=== PATIENT | female | born 1985 | race Two or more races ===

== ENCOUNTER → 2017-01-09 | Emergency (ER) | payer OTHER ==
[~2017-01-09] MED LIST: HYDROMORPHONE HCL 1 MG/ML SYRINGE ONE; MAGNESIUM SULFATE 1 G/100 ML 100 ML IV ONE; ONDANSETRON 4 MG/2ML 2 ML VIAL ONE; SODIUM CHLORIDE 0.9% 1,000 ML ONE
[2017-01-09 18:25] LABS: ABSOLUTE NEUTROPHIL COUNT 5.5 K/mm3 (1.8-7.7); BASO % 0.3 % (0.2-1.0); EOS % 0.1 % (0.9-2.9); HEMATOCRIT 38.2 % (37.0-47.0); HEMOGLOBIN 13.1 gm/l (12.0-16.0); IMM NEUT% 0.3 % (0-1); LYMPH # 0.8 (1.0-4.8); LYMPH % 12.1 % (15-45); MEAN CELL VOLUME 89.5 fl (81.0-99.0); MEAN CORPUSCULAR HEMOGLOBIN 30.7 pg (27.0-31.0); MEAN CORPUSCULAR HGB CONC 34.3 g/dl (33.0-37.0); MEAN PLATELET VOLUME 11.3 fl (7.4-10.4); MONO # 0.4 (0.0-0.8); MONO % 6.2 % (4-12); PLATELET COUNT 197 K/mm3 (130-400); RED CELL DISTRIBUTION WIDTH 12.9 % (11.5-14.5)
[2017-01-09 18:29] LABS: ALB/GLOB RATIO 1.3 (>1.0); ALBUMIN 4.1 gm/dL (3.5-5.7); CALCIUM 9.2 mg/dL (8.6-10.3)
[2017-01-09 18:33] LABS: HCG,QUALITATIVE URINE NEGATIVE
[2017-01-09 18:41] LABS: URINE BILIRUBIN NEGATIVE (NEGATIVE); URINE BLOOD NEGATIVE (NEGATIVE); URINE GLUCOSE (UA) NEGATIVE (NEGATIVE); URINE LEUKOCYTE ESTERASE NEGATIVE (NEGATIVE); URINE NITRITE NEGATIVE (NEGATIVE); URINE PROTEIN NEGATIVE (NEGATIVE); URINE UROBILINOGEN NORMAL (0-1 mg/dl)
[2017-01-09] MEDS: IOPAMIDOL 370 (76%) 100 ML VIAL IV ONE (18:42)
[2017-01-09 18:43] LABS: INR 0.99; PROTHROMBIN TIME 10.4 SECONDS (9.3-11.4)
[2017-01-09 18:52] LABS: URINE APPEARANCE CLEAR; URINE COLOR YELLOW
--- NOTE | 2017-01-09 19:41 | CT ---
ADDENDUM #1 In the impressions, the first section should read as follows: Teratoma/dermoid involving the left adnexal region. Mobility Architect Manager' s worksheet from ultrasound indicates patient had prior for oophorectomy for teratoma but is unsure of which side. Given nonvisualization of the right ovary, it is probably surgically absent. PUBLIC RELATIONS WRITER consult would be helpful in further management and treatment. The remainder the exam stands as is. ORIGINAL REPORT Exam Type: ABD/PELVIS W/ CON Date and Time: 01/09/2017 6:24 PM Clinical information: Abnormal lesion identified on recent ultrasound. Comparison: Other ultrasound 01/09/2017 Technique: Contiguous axial 4 mm images were obtained from the lung bases through the pelvis after the uneventful IV administration of 100 cc of Isovue-370. Sagittal and coronal reformations with high resolution lung algorithm images were also obtained at this time. CT DI: 33.1 DLP 1775.6 FINDINGS: Lung base :No abnormality is identified at the lung bases. Visualized heart:There is no pericardial effusion. LIVER: within normal limits. BILE DUCTS: normal caliber. GALLBLADDER: No calcified gallstones. Normal caliber wall. PANCREAS: within normal limits. SPLEEN: within normal limits. ADRENALS: within normal limits. KIDNEYS: within normal limits. Stomach and small BOWEL: Normal caliber. Large bowel: Air and stool are noted within the large bowel. LYMPH NODES: No enlarged mesenteric lymph nodes. PERITONEUM: no ascites or free air, no fluid collection. VESSELS: within normal limits RETROPERITONEUM: within normal limits. ABDOMINAL WALL: within normal limits. Bladder: Normal. Uterus and adnexa: There is a left adnexal teratoma/dermoid. This does correspond to the area of abnormality as seen on recent ultrasound. This measures approximately 6.7 x 7.7 x 9.3 cm in maximal AP, transverse and craniocaudal extent. Right ovary is not visualized. BONES: within normal limits. IMPRESSION: Teratoma/dermoid involving the left adnexal region. Mobility Architect Manager' s worksheet from the ultrasound indicates patient had prior left oophorectomy for teratoma. Findings may relate to recurrence. Correlation with patient's surgical history is recommended to verify the side of oophorectomy. Findings were called to Dr. Carvajal at approximately 1934 hours on 01/09/2017.
== END ==
LOC: ED 17:22
DX: D39.8 Neoplasm of uncertain behavior of other specified female genital organs (principal); R10.32 Left lower quadrant pain; R10.2 Pelvic and perineal pain; N83.9 Noninflammatory disorder of ovary, fallopian tube and broad ligament, unspecified; Z90.721 Acquired absence of ovaries, unilateral
CPT/HCPCS: 81025; 85025; 80053; 83735; 85610; 81003; 74177; 76856; 76830; 96375 ×2; 99284 ×2; 96361; 96365; J1170; J3475; J2405; J7030; Q9967

== ENCOUNTER 2017-01-24 08:17 | Day surgery (SDC) | payer OTHER ==
[~2017-01-24 08:17] MED LIST changes: +CEFAZOLIN SODIUM 2 GRAM DUPLEX 2 G in Premix (D5W) 50 ml 1 EACH IV PRN; -HYDROMORPHONE HCL 1 MG/ML SYRINGE ONE; +LIDOCAINE 1% 2 ML VIAL ID PRN; -MAGNESIUM SULFATE 1 G/100 ML 100 ML IV ONE; -ONDANSETRON 4 MG/2ML 2 ML VIAL ONE; -SODIUM CHLORIDE 0.9% 1,000 ML ONE
[2017-01-24] MEDS ORDERED: LACTATED RINGERS 1,000 ML ONE (08:23)
[2017-01-24] MEDS ORDERED: IV START KIT ONE (08:24)
[2017-01-24] MEDS ORDERED: SUCCINYLCHOLINE CHL 20 MG/ML DOSE ONE (10:40)
[2017-01-24] MEDS ORDERED: PROPOFOL 20 ML IV ONE ×2 (10:40→11:26)
[2017-01-24] MEDS ORDERED: LIDOCAINE 2% (MULTI DOSE) 10 ML VIAL ONE (10:40)
[2017-01-24] MEDS ORDERED: MIDAZOLAM HCL 1 MG/ML 2ML VIAL ONE (10:41)
[2017-01-24] MEDS ORDERED: FENTANYL 100 MCG/2 ML VIAL ONE ×3 (10:41→12:34)
[2017-01-24] MEDS ORDERED: ONDANSETRON 4 MG/2ML 2 ML VIAL ONE (10:43)
[2017-01-24] MEDS ORDERED: DEXAMETHASONE SOD PHOS 4 MG/1 ML VIAL ONE (10:43)
[2017-01-24] MEDS ORDERED: KETAMINE HCL UD SYRINGE 100 MG/2 ML IV ONE (11:17)
[2017-01-24] MEDS ORDERED: ROCURONIUM BROMIDE 10 MG/ML DOSE IV ONE (11:17)
[2017-01-24] MEDS ORDERED: HYDROMORPHONE HCL 2 MG/ML SYRINGE ONE (11:37)
[2017-01-24] MEDS ORDERED: NEOSTIGMINE METHYLSULFATE 1 MG/ML DOSE ONE (11:38)
[2017-01-24] MEDS ORDERED: GLYCOPYRROLATE 0.2 MG/ML 1ML VIAL ONE (11:38)
[2017-01-24] MEDS ORDERED: NALOXONE HCL 0.4 MG/ML VIAL IV PRN (11:41)
[2017-01-24] MEDS ORDERED: HYDRALAZINE HCL 20 MG/1 ML VIAL IV PRN (11:41)
[2017-01-24] MEDS ORDERED: MEPERIDINE 25 MG/ML SYRINGE IV PRN (11:41)
[2017-01-24] MEDS ORDERED: LABETALOL HCL 5 MG/ML 20ML VIAL IV PRN (11:41)
[2017-01-24] MEDS ORDERED: PROMETHAZINE HCL 25 MG/ML VIAL IM PRN (11:41)
[2017-01-24] MEDS ORDERED: ONDANSETRON 4 MG/2ML 2 ML VIAL IV PRN ×2 (11:41→12:22)
[2017-01-24] MEDS ORDERED: ATROPINE SULFATE 0.4 MG/1 ML VIAL IV PRN (11:41)
[2017-01-24] MEDS ORDERED: LACTATED RINGERS 1,000 ML IV SCH (11:45)
[2017-01-24] MEDS ORDERED: DIPHENHYDRAMINE HCL 50 MG/1 ML VIAL IV PRN (12:22)
[2017-01-24] MEDS ORDERED: BLISTEX LIPSTICK 1 EACH TP PRN (12:22)
[2017-01-24] MEDS ORDERED: MAG HYDROX/AL HYDROX/SIMETH 30 ML UDCUP PO PRN (12:22)
[2017-01-24] MEDS ORDERED: MAGNESIUM HYDROXIDE/AL HYDROX 30 ML UDCUP PO PRN (12:22)
[2017-01-24] MEDS ORDERED: ACETAMINOPHEN 325 MG TABLET PO PRN (12:22)
[2017-01-24] MEDS ORDERED: MENTHOL/CETYLPYRD 1 EACH LOZENGE PO PRN (12:22)
[2017-01-24] MEDS ORDERED: DOCUSATE SODIUM 100 MG CAPSULE PO PRN (12:22)
[2017-01-24] MEDS ORDERED: OXYCODONE/ACETAMINOPHEN 5/325 MG TABLET PO PRN (12:22)
[2017-01-24] MEDS ORDERED: IBUPROFEN 800 MG TABLET PO SCH (12:30)
[2017-01-24] MEDS: FENTANYL 100 MCG/2 ML VIAL IV PRN ×2 (12:35→12:41)
--- NOTE | 2017-01-24 12:37 | PCMBPN ---
Brief Post Op Note: Date of Procedure: 01/24/17 Start Time: Preoperative Diagnosis: 1. left ovarian teratoma Postoperative Diagnosis: 1. Same Procedure: exploratory laparotomy, left ovarian cystectomy Surgeon: Cricket Arellano Assist:dr jaimes Anesthesia: mr chavez, general Findings: normal size uterus, right fallopian tube normal, left fallopian tube normal, 7 cm left ovarian bilobar cyst Condition: stable Complications: none IV Fluids: mLs of LR Urine Output: 400 mLs Estimated Blood Loss: 100 mLs Tourniquet Time: N/A Specimens: left ovarian cyst Implants: Drains: closure sarah patient tolerated procedure well and was returned to recovery room in stable condition with guidry draining clear yellow urine
[2017-01-24] MEDS ORDERED: KETOROLAC TROMETHAMINE 30 MG/ML 1 ML VIAL ONE (12:40)
[2017-01-24] MEDS ORDERED: KETOROLAC TROMETHAMINE 30 MG/ML 1 ML VIAL IV ONE (12:44)
[2017-01-24] MEDS ORDERED: MEPERIDINE 25 MG/ML SYRINGE ONE (12:51)
[2017-01-24] MEDS ORDERED: HYDROMORPHONE HCL 1 MG/ML SYRINGE ONE (13:00)
[2017-01-24] MEDS: HYDROMORPHONE HCL 1 MG/ML SYRINGE IV PRN ×2 (13:06→13:11)
[2017-01-24] MEDS: LACTATED RINGERS 1,000 ML IV SCH ×8 (14:37→22:43)
[2017-01-24] MEDS ORDERED: PUMP TUBING ONE (14:42)
[2017-01-24] MEDS: MORPHINE SULFATE 2 MG/ML SYRINGE IV PRN ×2 (15:57→22:50)
[2017-01-24 16:45] VITALS: BMI 42.5
--- NOTE | 2017-01-24 17:11 | OP ---
HILARIO ESQUIVEL [id number] DATE OF : 1985 NAME OF OPERATION: EXPLORATORY LAPAROTOMY WITH A LEFT OVARIAN CYSTECTOMY. PREOPERATIVE DIAGNOSIS: Left ovarian teratoma. POSTOPERATIVE DIAGNOSIS: Left ovarian teratoma. PLASTIC CUTTER: Dr. Cricket Arellano LAND AGENT: Dr. Dennis Hi ANESTHESIA: Zach Wu CRNA, general anesthesia. DESCRIPTION OF PROCEDURE: With the patient in a supine position under general anesthesia, a Coleman was placed and it was draining clear yellow urine at the onset of the procedure. The abdomen was prepared with ChloraPrep and draped in the usual manner for a Pfannenstiel incision. After a time-out was performed, a knife was used to make a Pfannenstiel incision through the previous incision. The subcutaneous tissue was dissected down with the same knife to the rectus abdominis fascia which was nicked with the knife and then carried laterally with the Briseno scissors. All bleeding points were clamped with Kelleys and Bovied. The superior portion of the fascia was grasped with Kang clamps and the median raphe divided with the Briseno scissors, then a similar procedure was performed on the lower end of the incision. The muscle was split in midportion and the peritoneum was then entered by blunt dissection using a finger, and the peritoneum was stretched laterally. Findings included a normal sized anteverted uterus. The right Fallopian tube was normal. The right ovary was surgically absent. The left ovary contained a 7 cm bi-lobar ovarian cyst and the left Fallopian tube appeared normal. The ovarian cyst was delivered through the incision and then a circumferential incision was made around the ovarian cyst, and then the cyst wall was dissected back using blunt dissection and also Metzenbaum scissors. The cyst was removed and then the remainder of the cyst wall and a portion of the ovary were sutured with 2-0 Chromic continuous interlocking sutures, resulting in complete hemostasis. At the end of the procedure, suturing the cyst wall to the ovarian tissue base resulted in approximately 2-3 cm of ovarian tissue remaining. At this point, with complete hemostasis and instrument, sponge and instrument count reported as correct, the rectus muscle was reapproximated with 1-Chromic interrupted sutures times three and the rectus abdominis fascia was reapproximated in right and left halves using a running stitch of 1-Vicryl material, locking the first stitch only. Subcutaneous bleeding points were Bovied prior to closure. The skin was closed with sarah. Estimated blood loss of the procedure was 100 mL. The patient tolerated the procedure well and was returned to the recovery room in stable condition, with a Coleman draining clear yellow urine. FINAL DIAGNOSIS: As above.
[2017-01-24] MEDS: IBUPROFEN 800 MG TABLET PO SCH (20:48)
[2017-01-24] MEDS: KETOROLAC TROMETHAMINE 30 MG/ML 1 ML VIAL IV PRN (21:34)
[2017-01-25] MEDS: IBUPROFEN 800 MG TABLET PO SCH ×4 (01:29→18:49)
[2017-01-25] MEDS: LACTATED RINGERS 1,000 ML IV SCH ×3 (06:18→22:33)
[2017-01-25] MEDS: KETOROLAC TROMETHAMINE 30 MG/ML 1 ML VIAL IV PRN ×2 (06:18→12:32)
--- NOTE | 2017-01-25 10:54 | PDOC43 ---
- Subjective patient feels tired today. would like to delay discharge until tomorrow. Subjective: Reports Flatus, Reports Pain Tolerable, Reports Tolerating PO Clear , Reports Tolerating PO Regular, Denies Chest Pain, Denies Nausea, Denies Vomiting, Denies Fever, Denies Bowel Movement - Objective Vital Signs Temperature 98.8 F 01/25/17 07:44 Pulse Rate 71 01/25/17 07:44 Respiratory Rate 16 01/25/17 07:44 Blood Pressure 88/50 01/25/17 07:44 O2 Saturation by Pulse Oximetry 96 01/25/17 07:44 Oxygen Delivery Method Room Air Oxygen Flow Rate 0 Laboratory 01/25/17 06:54 Active Medication Orders Category Date Time Status Acetaminophen [Tylenol] Med 01/24/17 12:22 Active 325 - 650 mg PO Q4H PRN Diphenhydramine HCl [Benadryl] Med 01/24/17 12:22 Active 25 mg IV Q6H PRN Docusate Sodium [Colace] Med 01/24/17 12:22 Active 100 mg PO BID PRN Ibuprofen [Motrin] Med 01/24/17 18:45 Active 800 mg PO Q6H Ketorolac Tromethamine [Toradol] Med 01/24/17 20:55 Active 30 mg IV Q6H PRN LR 1,000 ml Med 01/24/17 12:30 Active Lactated Ringers 1,000 ml IV 125 mls/hr Lip [place] [Blistex] Med 01/24/17 12:22 Active 1 each TP PRN PRN Magnesium Hydroxide/Al Hydrox [Maalox] Med 01/24/17 12:22 Active 30 ml PO Q4H PRN Magnesium/Al Hydrox/Simeth [Maalox Plus] Med 01/24/17 12:22 Active 30 ml PO Q4H PRN Menthol/Cetylpyridinium [Cepacol] Med 01/24/17 12:22 Active 1 each PO PRN PRN Morphine Sulfate Med 01/24/17 14:40 Active 2 mg IV Q2H PRN Ondansetron 4 mg/2ml Vial [Zofran] Med 01/24/17 12:22 Active 4 mg IV Q4H PRN Oxycodone HCl [Roxicodone] Med 01/24/17 12:22 Active 5 - 10 mg PO Q3H PRN Oxycodone HCl/Acetaminophen [Percocet 5/325] Med 01/24/17 12:22 Active 1 - 2 tab PO Q4H PRN Sodium Chloride 0.9% Flush [Normal Saline 10ml Flush] Med 01/24/17 12:22 Active 10 - 50 ml IV PRN PRN Intake and Output 01/23/17 01/24/17 01/25/17 23:59 23:59 23:59 Intake Total 1700 400 Output Total 625 2250 Balance 1075 -1850 General: Afebrile, No Acute Distress Lungs: Clear to Auscultation Bilaterally, Normal Air Movement Abdomen: Soft, Non-Distended, Normal Bowel Sounds, Other (flatus passed, no bowel movemet), No Tenderness Wound PIT 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
[2017-01-25] MEDS: OXYCODONE HCL 5 MG TABLET PO PRN ×2 (19:37→22:42)
[2017-01-26] MEDS: IBUPROFEN 800 MG TABLET PO SCH ×2 (01:16→06:12)
--- NOTE | 2017-01-26 06:11 | PDOC5 ---
Hospital Course: ADMIT DATE: DISCHARGE DATE: 01/26/17 ADMISSION DIAGNOSES: left ovarian cyst (teratoma) PROCEDURES: exploratory laparotomy, left ovarian cystectomy HISTORY OF PRESENT ILLNESS: 31 year old presenting with left ovarian cyst with characteristics of teratoma on ultrasound HOSPITAL COURSE: The patient had an uneventful post operative course. on post operative day one she felt tired from analgesics and requested staying in hospital another day. By day of discharge the patient is ambulating, eating, voiding, and passing flatus without difficulty. Pain is controlled. 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: Dressing in Place, Dressing Clean/Dry/Intact, Well Approximated, [place] Intact, No Drainage, No Erythema, No Rash Genitourinary: Other (voiding without difficulty) Extremities: No Tenderness Psych/Mental Status: Normal Affect, Normal Mood - Discharge Diagnosis (1) Dermoid cyst of left ovary Status: Acute (2) Obesity Qualifiers: Obesity type: unspecified obesity type Status: Acute - Discharge Plan Condition: Good Additional Instructions: no heavy lifting, may drive a car in one week, take prescribed medications as written, office visit with dr arroyo 10 days for staple removal Prescriptions: Ibuprofen [Motrin] 800 mg PO Q8H PRN #30 tablet PRN Reason: Pain Codeine/APAP 30/300 mg [TYLENOL with CODEINE] 1 tab PO Q4-6H PRN #15 tablet PRN Reason: Pain
[2017-01-26] MEDS: OXYCODONE HCL 5 MG TABLET PO PRN (06:13)
[2017-01-26 07:40] VITALS: BP 101/61
--- NOTE | 2017-01-28 15:55 | SURGPATH ---
[facility] [address] [place] [id number] Patient Name: HILARIO ESQUIVEL MR#: [id number] : 1985 Gender: F Specimen #: [id number] Collected: 01/24/2017 Received: 01/27/2017 Reported: 01/28/2017 Submitting Phys: EKNDRA VERGARA I Copy To Phys: [facility] RICARDO ALTAMIRANO Clinical History / Pre-Operative Diagnosis: LEFT OVARIAN TERATOMA; PELVIC PAIN Specimen Source / Surgical Procedure Performed: LEFT OVARIAN TERATOMA Interpretation: OVARY, LEFT, CYSTECTOMY: - MATURE CYSTIC TERATOMA Electronically Signed Out Odessa Dunn M.D. Gross Description: The specimen is received in a formalin filled container labeled with the patient's name and "left ovarian teratoma". Three separate, smooth surfaced, miller-pena ovarian cystectomy specimens are 2.7 x 2.5 x 2 cm and 8 g; 5.0 x 4.0 x 3.5 cm and 40 g; 6.5 x 5.5 x 5 cm and 100 g. The smaller cyst has a predominantly thin-wall with a 0.7 cm nidus. The lumen is filled with greasy yellow-pena sebaceous material. The middle sized cyst has a predominantly thin-wall with a 1 cm nidus. The lumen is filled with greasy, yellow-pena sebaceous material and hair. The largest cyst has a predominantly thin-wall with a 1.2 cm nidus. The lumen is filled with soft pena sebaceous material and a small amount of hair. Summary of sections: A-smallest cyst wall B and C-middle sized cyst wall D-F-largest cyst wall Josh Malone Microscopic Description: Sections show three cysts with features of mature cystic teratoma. They are lined by benign squamous epithelium as well as columnar epithelium. Foreign body reaction is seen. No evidence of immature neuroectodermal tissue or embryonal tissue is seen. No thyroidal tissue is seen. Bone, cartilage, salivary gland tissue, and mature glial tissue is seen. No uninvolved ovarian stroma is present. Dr. Juan Montesinos has reviewed the case and concurs with the interpretation. 1: [id number] D27.1
== END 2017-01-26 10:00 | disposition home or self-care (01) ==
LOC: SDC 08:17 → MS 14:26 → SDC 01-26 10:00
PROVIDERS: ATTEND Obstetrics & Gynecology
PROC: 0UB10ZZ Excision of Left Ovary, Open Approach (ICD-10-PCS; principal; 2017-01-24)
DX: D27.1 Benign neoplasm of left ovary (principal); E66.9 Obesity, unspecified; Z68.41 Body mass index [BMI] 40.0-44.9, adult; Z80.41 Family history of malignant neoplasm of ovary; Z90.721 Acquired absence of ovaries, unilateral
CPT/HCPCS: 85014; 85018; 58662; J2175; J1170 ×2; J3010 ×3; J1100; J2270 ×2; A9270 ×8; J1885 ×4; J2250; J2405 ×2; J7120 ×4; J2001